=== PATIENT | male | born 1995 | race Caucasian/White ===

== ENCOUNTER 2024-03-25 15:06 | Outpatient (AMB) | payer BC, SELFPAY ==
[2024-03-25 15:07] VITALS: BP 128/82; PULSE 76; O2SAT 99; BMI 24.8
--- NOTE | 2024-03-25 15:07 | MHC.PC.OV ---
Vital Signs 03/25/24 15:07 Height 5 ft 7 in Weight 158 lb 4 oz BMI 24.8 BP 128/82 Blood Pressure Location Lt brachial Position Sitting Pulse 76 Pulse Source Pulse Oximeter Pulse Oximetry (%) 99 Oxygen Delivery Method Room Air Intake Visit Reasons: establish care Public Services Assistant Required: No Accompanied by: Self / Same As Patient Allergies animal dander [PET DANDER] Allergy (Intermediate, Verified 03/25/24 16:01) RUNNY NOSE, HIVES Medication List - Last Reconciled 03/25/24 by Tello Abbott MD No Known Home Meds Tobacco use date assessed: 03/25/24 Dental Screening Dental Screen Date: 03/25/24 Did you have a dental visit in the last 12 months?: Yes Did you have a dental problem in the last 6 months where you did not have access to dental care?: No Was dental information given to patient?: Patient has dentist HPI establish care HPI Details Patient comes in today for his annual physical examination and to establish care - is a new patient to the practice Patient states that he has not seen a doctor for years and does not even remember who his last PCP was Relates that he has been experiencing increased anxiety for a while now States that he was on Prozac 20 mg in the past but he self-discontinued his medication and has not taken any Rx for at least 6 years now He is currently seeing a therapist at [facility] regularly and was supposedly advisd to see his PCP for simon Rx first, as it will be a while before they can get him in to see a psychiatrist Patient states that other than his anxiety, he presently feels okay He denies any headaches or dizziness Denies any chest pains, no shortness of breath No nausea/vomiting, no abdominal pain No change in bowel habits noted He denies any acute urinary symptoms [facility] Medical History (Updated 03/25/24 @ 16:10 by Tello Abbott MD) Generalized anxiety disorder Surgical History History of circumcision Family History Mother High blood pressure Father Anxiety Mental health problem Social History Housing: House Alcohol intake: current Alcohol intake frequency: holidays/special occasions only Patient Tobacco Use Status: Never used Tobacco e-Cigarette/Vaping Use: Never Used service: No Current occupational status: employed Current occupational exposures/hazards: No Cognitive needs: No Hearing needs: No Vision needs: No Questionnaire PHQ-9 Over the last 2 weeks, how often have you been bothered by any of the following problems? 1. Little interest or pleasure in doing things: not at all 2. Feeling down, depressed, or hopeless: not at all 3. Trouble falling or staying asleep, or sleeping too much: not at all 4. Feeling tired or having little energy: not at all 5. Poor appetite or overeating: not at all 6. Feeling bad about yourself - or that you are a failure or have let yourself or your family down: not at all 7. Trouble concentrating on things, such as reading the newspaper or watching television: not at all 8. Moving or speaking so slowly that other people could have noticed. Or the opposite - being so fidgety or restless that you have been moving around a lot more than usual: not at all 9. Thoughts that you would be better off or of hurting yourself in some way: not at all Total score: 0 Depression Screening Interpretation: Negative Depression Screening Done: Yes 60910 - PHQ-9 Billing: Yes Source: Developed by Drs. Chuy Morales, Harriett Alvarenga, Yosi Esquivel and colleagues, with an educational gadiel from [employer]. Thrive Questionnaire Date Thrive assessed: 03/25/24 I am a: Patient What is your living situation today?: I have a steady place to live Within the past 12 months, did the food you bought not last and you didn't have the money to get more?: Never true Within the past 12 months, did you worry whether your food would run out before you got money to buy more?: Never true Do you have trouble paying for medicines?: No Do you have trouble getting transportation to medical appointments?: No Do you have trouble paying your heating and electricity bill?: No Do you have trouble taking care of your child, family member or friend?: No Do you have trouble with day-to-day activities such as bathing, preparing meals, shopping, managing finances, etc.?: No Are you currently unemployed and looking for a job?: No Are you interested in more education?: No Please select the resources that you would like help with: None Currently or been in a relationship where the following occur: No concerns reported THRIVE Score: 0 AUDIT C Alcohol Use Questionnaire (AUDIT-C) 1. How often do you have a drink containing alcohol?: Never 2. How many drinks containing alcohol do you have on a typical day when you are drinking?: 1 or 2 3. How often do you have six or more drinks on one occasion?: Never Total Score: 0 Score Reviewed/Action Taken: Yes SLOAN-7 AMB Questionnaire SLOAN-7 Date SLOAN - 7 assessed: 03/25/24 Feeling nervous, anxious, or on edge: 3 = Nearly every day Not being able to stop or control worryin = Nearly every day Worrying too much about different things: 3 = Nearly every day Trouble relaxin = More than half the days Being so restless that it is hard to sit still: 0 = Not at all Becoming easily annoyed or irritable: 2 = More than half the days Feeling afraid as if something awful might happen: 2 = More than half the days Total SLOAN-7 score (0-4 normal; 5-9 mild; 10-14 moderate; 15-21 severe): 15 Source: Developed by Drs. Chuy Morales, Harriett Alvarenga, Yosi Esquivel and colleagues, with an educational gadiel from [employer]. Review of Systems Const Denies chills, Denies fatigue, Denies fever(s), Denies headache(s), Denies malaise and Denies weakness Eyes Denies blurry vision, Denies change in vision, Denies irritation and Denies itchy eyes ENT Denies dysphagia, Denies dizziness, Denies otalgia, Denies headache(s), Denies nasal congestion, Denies neck pain, Denies odynophagia and Denies sore throat Card Denies chest pain, Denies rapid heart rate, Denies irregular heart rhythm, Denies palpitations and Denies dyspnea Resp Denies chest congestion, Denies cough, Denies dyspnea and Denies wheezing GI Denies abdominal pain, Denies bloating, Denies constipation, Denies dysphagia, Denies heartburn, Denies diarrhea, Denies nausea, Denies odynophagia and Denies vomiting Denies hematuria, Denies difficulty urinating, Denies dysuria, Denies urinary frequency and Denies urinary urgency Musc Denies back pain, Denies arthralgias, Denies joint swelling, Denies muscle weakness and Denies neck pain Skin/Breast Denies change in pigmentation, Denies lesions, Denies rash and Denies unusual bruising Neuro Denies dizziness, Denies headache(s), Denies paresthesias and Denies weakness Psych Reports anxiety (increasing lately) and Denies depression Endo Denies fatigue and Denies palpitations Aller/Immun Denies itchy eyes and Denies wheezing Physical exam (Primary Care) Vital Signs: Last Vital Signs Pulse 76 03/25/24 15:07 BP 128/82 03/25/24 15:07 Pulse Ox 99 03/25/24 15:07 Oxygen Delivery Method Room Air 03/25/24 15:07 BMI result Body Mass Index 24.8 Tobacco/Smoking Status: Tobacco use Status Tobacco use date assessed 03/25/24 03/25/24 15:10 Patient Tobacco Use Status Never used Tobacco 03/25/24 15:10 e-Cigarette/Vaping Use Never Used 03/25/24 15:40 PHQ-9: PHQ-9 Score PHQ-9: Total score 0 03/25/24 16:08 Depression Screening Interpretation: Negative Thrive Assessment: Date of Thrive Assessment Date Thrive assessed 03/25/24 03/25/24 15:10 Currently or been in a relationship where the following occur: No concerns reported Const General: no acute distress, alert and awake Orientation/consciousness: patient oriented x3 [facility] Head: Yes normocephalic and Yes atraumatic Ears: external ears normal, TM's normal bilaterally and EAC's normal General nose exam: No nasal discharge present Face and sinus: Yes normal facial exam and Yes sinuses nontender Teeth and gingiva: dentition normal Throat: Yes posterior oropharynx normal and Yes tonsils normal (no TP congestion) Eyes Eyelids: Yes eyelids normal Conjunctivae: conjunctivae normal Pupils: Equal, round and reactive pupils present EOM: EOMs intact bilaterally Neck Neck: Yes supple and No lymphadenopathy Thyroid: Thyroid normal Resp Auscultation: clear to auscultation bilaterally, no rales and no wheezes Cardio Rate: regular rate Rhythm: regular rhythm Heart sounds: no murmurs GI Palpation (GI): Soft to palpation, nontender and No hepatosplenomegaly present Auscultation: normal bowel sounds General: Yes no CVA tenderness Back/Spine/Pelvis Back: no CVA tenderness Thoracic/Lumbar Spine: thoracic and lumbar spine normal to inspection Skin Lesions: no lesions Rashes: no rashes Neuro General: patient oriented x3, moves all extremities, no focal motor deficits and CN's II-XI intact bilaterally Cranial nerves: Yes Equal, round and reactive pupils present Cognition (Neuro): normal cognition Gait exam (Neuro): Normal gait present Extrem General: Yes no clubbing, cyanosis or edema Coding Level of Care Code New Pt Prev Care 18-39yr([id number] Diagnoses Annual physical exam Z00. Generalized anxiety disorder F41.1 Additional Codes PHQ-9 - 16314 - PHQ-9 Billing: Yes ([id number]) Assessment & Plan Assessment & Plan (1) Annual physical exam: Code(s): Z00. - Encounter for general adult medical examination without abnormal findings Category: Medical Plan: Check labs (2) Generalized anxiety disorder: Code(s): F41.1 - Generalized anxiety disorder Category: Medical Plan: Will start patient again on Fluoxetine 10 mg QD He is advised to continue following up with his therapist at [facility] regularly as scheduled Plan Follow-up in 3 months Orders: Orders Complete Blood Count Auto Diff 03/25/24 D64.9 - Anemia, unspecified, F41.1 - Generalized anxiety disorder, Z00. - Encounter for general adult medical examination without abnormal findings Comprehensive [place]. Panel Fast 03/25/24 E78.00 - Pure hypercholesterolemia, unspecified, F41.1 - Generalized anxiety disorder, Z00.00 - Encounter for general adult medical examination without abnormal findings UA CC w/rflx Micro + Cult 03/25/24 F41.1 - Generalized anxiety disorder, R30.0 - Dysuria, Z00.00 - Encounter for general adult medical examination without abnormal findings Vitamin D 25-OH Total 03/25/24 E55.9 - Vitamin D deficiency, unspecified, F41.1 - Generalized anxiety disorder, Z00. - Encounter for general adult medical examination without abnormal findings Lipid Panel 03/25/24 E78.00 - Pure hypercholesterolemia, unspecified, F41.1 - Generalized anxiety disorder, Z00.00 - Encounter for general adult medical examination without abnormal findings TSH reflex Free T4 03/25/24 E78.00 - Pure hypercholesterolemia, unspecified, F41.1 - Generalized anxiety disorder, Z00.00 - Encounter for general adult medical examination without abnormal findings Medications: New fluoxetine 10 mg PO DAILY 90 caps 0RF 90 days
== END 2024-03-25 16:14 | disposition home or self-care (01) ==
PROVIDERS: PCP Internal Medicine; Visit Provider Internal Medicine
DX: Z00.00 Encounter for general adult medical examination without abnormal findings (principal); F41.1 Generalized anxiety disorder

== ENCOUNTER → 2024-03-25 15:06 | Outpatient (BNVA) | payer BC, SELFPAY | PROVIDERS: PCP Internal Medicine; Visit Provider Internal Medicine | DX: Z00.00 Encounter for general adult medical examination without abnormal findings (principal); F41.1 Generalized anxiety disorder | CPT/HCPCS: 96127 ==

== ENCOUNTER 2024-05-20 12:33 | Outpatient (AMB) | payer BC, SELFPAY ==
[2024-05-20 12:36] VITALS: BP 142/92; PULSE 90; TEMP 36.4; O2SAT 98; BMI 25.9
--- NOTE | 2024-05-20 12:36 | A.OFFPC_ITS ---
Vital Signs 05/20/24 12:36 Height 5 ft 7 in Weight 165 lb 2 oz BMI 25.9 BP 142/92 H Blood Pressure Location Lt brachial Position Sitting Pulse 90 Pulse Source Pulse Oximeter Temp 97.5 F Temp Source Temporal Artery Scan Pulse Oximetry (%) 98 Oxygen Delivery Method Room Air Intake Visit Reasons: discuss anxiety medication Weatherization Coordinator Required: No Accompanied by: Self / Same As Patient Allergies animal dander [PET DANDER] Allergy (Intermediate, Verified 05/20/24 12:54) RUNNY NOSE, HIVES Medication List - Last Reconciled 05/20/24 by Tello Abbott MD fluoxetine 10 mg PO DAILY 90 days Tobacco use date assessed: 03/25/24 Dental Screening Dental Screen Date: 03/25/24 HPI discuss anxiety medication HPI Details Patient comes in today for follow up of his anxiety States that his Rx (Fluoxetine 10 mg) was helping him a lot for about 3 weeks after he started taking it a couple of months ago but it's effect slowly started to wane Noted that it was not helping as well after the first 3 weeks and that it helped only for about 2 to 3 hours a day States that his anxiety seems to be worse when he is at work Relates that he tried taking 2 tablets of his 10 mg dose a couple of weeks ago but felt very tired and sleepy that day and he stopped taking it shortly after (about 2 weeks ago) and is wondering what to do next States that he is planning to call [facility] in [place], per his dad's recommendations, to schedule an appointment with a therapist [facility] - states that they do mostly telehealth visits He was not able to get his ordered labs done yet He denies any headaches or dizziness Denies any chest pains, no increased SOB No nausea/vomiting, no abdominal pain No change in bowel habits noted [facility] Medical History Generalized anxiety disorder Surgical History History of circumcision Family History Mother High blood pressure Father Anxiety Mental health problem Social History Housing: House Alcohol intake: current Alcohol intake frequency: holidays/special occasions only Patient Tobacco Use Status: Never used Tobacco e-Cigarette/Vaping Use: Never Used service: No Current occupational status: employed Current occupational exposures/hazards: No Cognitive needs: No Hearing needs: No Vision needs: No Questionnaire PHQ-9 Over the last 2 weeks, how often have you been bothered by any of the following problems? Depression Screening Interpretation: Negative Depression Screening Done: Yes Source: Developed by Drs. Chuy Morales, Harriett Alvarenga, Yosi Esquivel and colleagues, with an educational gadiel from [employer]. Thrive Questionnaire Date Thrive assessed: 03/23/24 I am a: Patient What is your living situation today?: I have a steady place to live Within the past 12 months, did the food you bought not last and you didn't have the money to get more?: Never true Within the past 12 months, did you worry whether your food would run out before you got money to buy more?: Never true Do you have trouble paying for medicines?: No Do you have trouble getting transportation to medical appointments?: No Do you have trouble paying your heating and electricity bill?: No Do you have trouble taking care of your child, family member or friend?: No Do you have trouble with day-to-day activities such as bathing, preparing meals, shopping, managing finances, etc.?: No Are you currently unemployed and looking for a job?: No Are you interested in more education?: No Please select the resources that you would like help with: None Currently or been in a relationship where the following occur: No concerns reported THRIVE Score: 0 SLOAN-7 AMB Questionnaire SLOAN-7 Date SLOAN - 7 assessed: 03/25/24 Source: Developed by Drs. Chuy Mroales, Harriett Alvarenga, Yosi Esquivel and colleagues, with an educational gadiel from [employer]. Review of Systems Const Denies chills, Reports fatigue, Denies fever(s) and Denies headache(s) ENT Denies dysphagia, Denies dizziness, Denies otalgia, Denies headache(s), Denies neck pain, Denies odynophagia and Denies sore throat Card Denies chest pain, Denies rapid heart rate, Denies irregular heart rhythm, Denies palpitations and Denies dyspnea Resp Denies chest congestion, Denies cough and Denies dyspnea GI Denies abdominal pain, Denies constipation, Denies dysphagia, Denies heartburn, Denies diarrhea, Denies nausea, Denies odynophagia and Denies vomiting Denies difficulty urinating, Denies dysuria and Denies urinary frequency Musc Denies back pain, Denies arthralgias and Denies neck pain Skin/Breast Denies rash Neuro Denies dizziness, Denies headache(s) and Denies paresthesias Psych Reports anxiety (increasing ) and Denies depression Endo Reports fatigue and Denies palpitations Physical exam (Primary Care) Vital Signs: Last Vital Signs Temp 97.5 F 05/20/24 12:36 Pulse 90 05/20/24 12:36 BP 142/92 H 05/20/24 12:36 Pulse Ox 98 05/20/24 12:36 Oxygen Delivery Method Room Air 05/20/24 12:36 BMI result Body Mass Index 25.9 Tobacco/Smoking Status: Tobacco use Status Tobacco use date assessed 03/25/24 05/20/24 12:37 Patient Tobacco Use Status Never used Tobacco 05/20/24 12:37 e-Cigarette/Vaping Use Never Used 05/20/24 12:37 Depression Screening Interpretation: Negative Thrive Assessment: Date of Thrive Assessment Date Thrive assessed 03/23/24 05/20/24 12:37 Currently or been in a relationship where the following occur: No concerns reported Const General: no acute distress and alert HENMT Throat: Yes posterior oropharynx normal and Yes tonsils normal (no TP congestion) Neck Neck: Yes supple and No lymphadenopathy Thyroid: Thyroid normal Resp Auscultation: clear to auscultation bilaterally, no rales and no wheezes Cardio Rate: regular rate Rhythm: regular rhythm Heart sounds: no murmurs GI Palpation (GI): Soft to palpation and nontender Auscultation: normal bowel sounds General: Yes no CVA tenderness Back/Spine/Pelvis Back: no CVA tenderness Thoracic/Lumbar Spine: No lumbar spinal tenderness Skin Rashes: no rashes Extrem General: Yes no clubbing, cyanosis or edema Coding Level of Care Code Est Pt Level 3 (69970) Diagnoses Generalized anxiety disorder F41.1 Assessment & Plan Assessment & Plan (1) Generalized anxiety disorder: Code(s): F41.1 - Generalized anxiety disorder Category: Medical Plan: Patient is instructed to start back on Fluoxetine 10 mg QD as he stopped taking the Rx a couple of weeks ago He is then to increase this to 20 mg QD after 1 week He used to follow up with his therapist at [facility] but is now planning to call up [facility] in [place] to schedule a telehealth visit with a therapist [facility] Plan Follow up in 6 weeks Orders: Referrals Psychiatry Referral F41.1 - Generalized anxiety disorder Medications: Changed From fluoxetine 10 mg PO DAILY 90 days 90 caps 0RF To fluoxetine 20 mg PO DAILY 90 days 90 caps 0RF
== END 2024-05-20 13:13 | disposition home or self-care (01) ==
LOC: HO.HMCH 12:34
PROVIDERS: PCP Internal Medicine; Visit Provider Internal Medicine
DX: F41.1 Generalized anxiety disorder (principal)

== ENCOUNTER → 2024-05-20 12:33 | Outpatient (BNVA) | payer BC, SELFPAY | PROVIDERS: PCP Internal Medicine; Visit Provider Internal Medicine ==

== ENCOUNTER 2024-08-19 06:30 | Outpatient (REF) | payer BC, SELFPAY ==
[2024-08-19 06:44] LABS: MANUAL DIFF FLAG NO
[2024-08-19 07:47] LABS: Hematocrit 46.5 % (42.0-52.0); Hemoglobin 15.3 g/dl (14.0-18.0); Imm Gran Abs Auto 0.05 X10*3/uL (0.00-0.03); Imm Gran Pct Auto 0.7 % (0.0-0.4); Lymphocytes Absolute Auto 2.0 X10*3/uL (1.2-4.9); Mean Corpuscular HGB Conc 32.9 g/dl (31.0-36.0); Mean Corpuscular Hemoglobin 27.6 pg (27.0-33.0); Mean Corpuscular Volume 83.8 fL (80.0-98.0); NRBC Abs Auto 0.000 X10*3/uL (0.0-0.012); NRBC Pct Auto 0.0 /100WBC (0.0-0.2); Platelet Count 223 X10*3/uL (160-400); Red Blood Count 5.55 X10*6/uL (4.60-5.80); White Blood Count 7.6 X10*3/uL (4.8-10.8)
[2024-08-19 08:11] LABS: Appearance Urine Clear; Glucose Urine UA Negative (Negative); PH 7.0 (5.0-9.0); Specific Gravity - Urine 1.020 (1.005-1.025)
[2024-08-19 08:30] LABS: Alanine Aminotransferase 38 U/L (0-40); Albumin Level 4.5 g/dL (3.5-5.0); Alkaline Phosphatase 65 U/L (39-117); Anion Gap 11 (12-20); Aspartate Amino Transferase 28 U/L (5-37); Blood Urea Nitrogen 16 mg/dL (9-16); Calcium 9.0 mg/dL (8.4-10.2); Carbon Dioxide 27 mmol/L (22-29); Chloride 106 mmol/L (96-108); Cholesterol 206 mg/dL (<200); Estimated Glomerular Filt Rate > 60; HDL Cholesterol 36 mg/dL (>40); Potassium 4.1 mmol/L (3.3-5.1); Sodium 140 mmol/L (135-145); Total Protein 7.3 g/dL (6.5-8.0); Triglycerides 226 mg/dL (<150)
== END 2024-08-19 06:31 | disposition home or self-care (01) ==
LOC: HO.LAB 06:30
PROVIDERS: PCP Internal Medicine; Visit Provider Internal Medicine
DX: F41.1 Generalized anxiety disorder (principal); E78.1 Pure hyperglyceridemia; E55.9 Vitamin D deficiency, unspecified; E66.3 Overweight; Z68.26 Body mass index [BMI] 26.0-26.9, adult; Z79.899 Other long term (current) drug therapy; Z13.31 Encounter for screening for depression; Z13.39 Encounter for screening examination for other mental health and behavioral disorders; Z00.00 Encounter for general adult medical examination without abnormal findings; E78.00 Pure hypercholesterolemia, unspecified
CPT/HCPCS: 36415; 80053; 80061; 81003; 82306; 84443; 85025; 96127

== ENCOUNTER 2024-08-19 09:29 | Outpatient (AMB) | payer BC, SELFPAY ==
[2024-08-19 09:30] VITALS: BP 130/86; PULSE 87; O2SAT 96; BMI 26.4
--- NOTE | 2024-08-19 09:30 | MHC.PC.OV ---
Vital Signs 08/19/24 09:30 Height 5 ft 7 in Weight 168 lb 8 oz BMI 26.4 BP 130/86 Blood Pressure Location Lt brachial Position Sitting Pulse 87 Pulse Source Pulse Oximeter Pulse Oximetry (%) 96 Oxygen Delivery Method Room Air Intake Visit Reasons: SLOAN Education Department Chair Required: No Accompanied by: Self / Same As Patient Allergies animal dander (PET DANDER) Allergy (Intermediate, Verified 08/19/24 09:49) RUNNY NOSE, HIVES Medication List - Last Reconciled 08/19/24 by Tello Abbott MD buspirone 10 mg PO BID escitalopram oxalate (Lexapro) 20 mg PO DAILY Tobacco use date assessed: 08/19/24 Dental Screening Dental Screen Date: 08/19/24 Did you have a dental visit in the last 12 months?: Yes Did you have a dental problem in the last 6 months where you did not have access to dental care?: No Was dental information given to patient?: Patient has dentist HPI SLOAN HPI Details Patient comes in today for his follow up visit He was started on back Fluoxetine for anxiety at his last visit, pending his psychiatry appointment / consultation He was eventually seen by psychiatry and had his medications changed States that he is doing well on his current Rx of Escitalopram and Buspirone He denies any headaches or dizziness Denies any chest pains, no SOB No nausea/vomiting, no abdominal pain No change in bowel habits noted States that he also finally had his labs (ordered during his annual physical earlier this year) done earlier this morning - to discuss his results [facility] Medical History (Updated 08/19/24 @ 10:10 by Tello Abbott MD) Overweight (BMI 25.0-29.9) Vitamin D deficiency Hypertriglyceridemia Generalized anxiety disorder Surgical History History of circumcision Family History Mother High blood pressure Father Anxiety Mental health problem Social History Housing: House Alcohol intake: current Alcohol intake frequency: holidays/special occasions only Patient Tobacco Use Status: Never used Tobacco e-Cigarette/Vaping Use: Never Used service: No Current occupational status: employed Current occupational exposures/hazards: No Cognitive needs: No Hearing needs: No Vision needs: No Questionnaire PHQ-9 Over the last 2 weeks, how often have you been bothered by any of the following problems? 1. Little interest or pleasure in doing things: not at all 2. Feeling down, depressed, or hopeless: not at all 3. Trouble falling or staying asleep, or sleeping too much: not at all 4. Feeling tired or having little energy: not at all 5. Poor appetite or overeating: not at all 6. Feeling bad about yourself - or that you are a failure or have let yourself or your family down: not at all 7. Trouble concentrating on things, such as reading the newspaper or watching television: not at all 8. Moving or speaking so slowly that other people could have noticed. Or the opposite - being so fidgety or restless that you have been moving around a lot more than usual: not at all 9. Thoughts that you would be better off or of hurting yourself in some way: not at all Total score: 0 Depression Screening Interpretation: Negative Depression Screening Done: Yes 68667 - PHQ-9 Billing: Yes Source: Developed by Drs. Chuy Morales, Harriett Alvarenga, Yosi Esquivel and colleagues, with an educational gadiel from [employer]. Thrive Questionnaire Date Thrive assessed: 08/19/24 I am a: Patient What is your living situation today?: I have a steady place to live Within the past 12 months, did the food you bought not last and you didn't have the money to get more?: Never true Within the past 12 months, did you worry whether your food would run out before you got money to buy more?: Never true Do you have trouble paying for medicines?: No Do you have trouble getting transportation to medical appointments?: No Do you have trouble paying your heating and electricity bill?: No Do you have trouble taking care of your child, family member or friend?: No Do you have trouble with day-to-day activities such as bathing, preparing meals, shopping, managing finances, etc.?: No Are you currently unemployed and looking for a job?: No Are you interested in more education?: No Please select the resources that you would like help with: Paying for medicine and None Currently or been in a relationship where the following occur: No concerns reported THRIVE Score: 0 AUDIT C Alcohol Use Questionnaire (AUDIT-C) 1. How often do you have a drink containing alcohol?: Never 3. How often do you have six or more drinks on one occasion?: Never Total Score: 0 Score Reviewed/Action Taken: Yes SLOAN-7 AMB Questionnaire SLOAN-7 Date SLOAN - 7 assessed: 08/19/24 Feeling nervous, anxious, or on edge: 0 = Not at all Not being able to stop or control worryin = Not at all Worrying too much about different things: 0 = Not at all Trouble relaxin = Not at all Being so restless that it is hard to sit still: 0 = Not at all Becoming easily annoyed or irritable: 0 = Not at all Feeling afraid as if something awful might happen: 0 = Not at all Total SLOAN-7 score (0-4 normal; 5-9 mild; 10-14 moderate; 15-21 severe): 0 Source: Developed by Drs. Chuy Morales, Harriett Alvarenga, Yosi Esquivel and colleagues, with an educational gadiel from [employer]. Review of Systems Const Denies chills, Denies fatigue, Denies fever(s) and Denies headache(s) ENT Denies dysphagia, Denies dizziness, Denies otalgia, Denies headache(s), Denies neck pain, Denies odynophagia and Denies sore throat Card Denies chest pain, Denies palpitations and Denies dyspnea Resp Denies chest congestion, Denies cough and Denies dyspnea GI Denies abdominal pain, Denies constipation, Denies dysphagia, Denies heartburn, Denies diarrhea, Denies nausea, Denies odynophagia and Denies vomiting Denies difficulty urinating, Denies dysuria, Denies nocturia and Denies urinary frequency Musc Denies back pain and Denies neck pain Neuro Denies dizziness and Denies headache(s) Psych Reports anxiety (better controlled) Endo Denies fatigue and Denies palpitations Physical exam (Primary Care) Vital Signs: Last Vital Signs Pulse 87 08/19/24 09:30 BP 130/86 08/19/24 09:30 Pulse Ox 96 08/19/24 09:30 Oxygen Delivery Method Room Air 08/19/24 09:30 BMI result Body Mass Index 26.4 Tobacco/Smoking Status: Tobacco use Status Tobacco use date assessed 08/19/24 08/19/24 09:36 Patient Tobacco Use Status Never used Tobacco 08/19/24 09:36 e-Cigarette/Vaping Use Never Used 08/19/24 09:36 PHQ-9: PHQ-9 Score PHQ-9: Total score 0 08/19/24 09:36 Depression Screening Interpretation: Negative Thrive Assessment: Date of Thrive Assessment Date Thrive assessed 08/19/24 08/19/24 09:36 Currently or been in a relationship where the following occur: No concerns reported Const General: no acute distress and alert HENMT Ears: TM's normal bilaterally and EAC's normal Throat: Yes posterior oropharynx normal and Yes tonsils normal (no TP congestion) Neck Neck: Yes supple and No lymphadenopathy Thyroid: Thyroid normal Resp Auscultation: clear to auscultation bilaterally, no rales and no wheezes Cardio Rate: regular rate Rhythm: regular rhythm Heart sounds: no murmurs GI Palpation (GI): Soft to palpation and nontender Auscultation: normal bowel sounds General: Yes no CVA tenderness Back/Spine/Pelvis Back: no CVA tenderness Thoracic/Lumbar Spine: No lumbar spinal tenderness Skin Rashes: no rashes Extrem General: Yes no clubbing, cyanosis or edema Results Reviewed Results Reviewed: Laboratory Tests 08/19/24 08/19/24 06:40 06:42 WBC 7.6 Hgb 15.3 Hct 46.5 Plt Count 223 Sodium 140 Potassium 4.1 Creatinine 0.86 Estimated GFR > 60 Fasting Glucose 97 Calcium 9.0 AST 28 ALT 38 Triglycerides 226 H Cholesterol 206 H LDL Cholesterol, Calc 125 H HDL Cholesterol 36 L 25-OH Vitamin D Total 24.7 L TSH 0.39 Ur Specific [place] 1.020 Urine Protein Negative Urine Glucose (UA) Negative Urine Blood Negative Urine Nitrite Negative Ur Leukocyte Esterase Negative Coding Level of Care Code Est Pt Level 4 (20367) Diagnoses Generalized anxiety disorder F41.1 Hypertriglyceridemia E78.1 Vitamin D deficiency E55.9 Overweight (BMI 25.0-29.9) E66.3 Additional Codes PHQ-9 - 31851 - PHQ-9 Billing: Yes ([id number]) Assessment & Plan Assessment & Plan (1) Generalized anxiety disorder: Code(s): F41.1 - Generalized anxiety disorder Category: Medical Plan: Continue Escitalopram 20 mg QD and Buspirone 10 mg BID Follow up with psychiatry as scheduled - he is now going to [facility] in [place] (2) Hypertriglyceridemia: Code(s): E78.1 - Pure hyperglyceridemia Category: Medical Plan: Results of his labs done earlier this morning reviewed and discussed with patient - he is advised that his serum TG level is elevated and this is in turn raising his total cholesterol level as well His LDL cholesterol is at the high end of normal at 125 mg/dl Discussed low cholesterol diet Will have him recheck his fasting lipids before he returns for his next annual physical examination in March 2025 (3) Vitamin D deficiency: Code(s): E55.9 - Vitamin D deficiency, unspecified Category: Medical Plan: He is advised that his Vitamin D level is low on his labs and he should start taking OTC Vitamin D3 supplements 2000 units QD (4) Overweight (BMI 25.0-29.9): Code(s): E66.3 - Overweight Category: Medical Plan: Reinforced diet/exercise as tolerated/lose weight Plan To return in March 2025 for his next annual physical examination Orders: Orders Vitamin D 25-OH Total 03/12/25 E55.9 - Vitamin D deficiency, unspecified, Z00.00 - Encounter for general adult medical examination without abnormal findings Comprehensive [place]. Panel Fast 03/12/25 E78.00 - Pure hypercholesterolemia, unspecified, Z00.00 - Encounter for general adult medical examination without abnormal findings Lipid Panel 03/12/25 E78.00 - Pure hypercholesterolemia, unspecified, Z00.00 - Encounter for general adult medical examination without abnormal findings
== END 2024-08-19 10:06 | disposition home or self-care (01) ==
LOC: HO.HMCH 09:29
PROVIDERS: PCP Internal Medicine; Visit Provider Internal Medicine
DX: F41.1 Generalized anxiety disorder (principal); E78.1 Pure hyperglyceridemia; E55.9 Vitamin D deficiency, unspecified; E66.3 Overweight